=== PATIENT | male | born 1995 | race Two or more races ===

== ENCOUNTER 2023-01-31 17:17 | Emergency (ER) | payer BC ==
[~2023-01-31] VITALS: Ht 175.3 cm; Wt 73.5 kg
== END 2023-01-31 19:36 | disposition home or self-care (01) ==
LOC: ER 17:17
DX: S82.891A Other fracture of right lower leg, initial encounter for closed fracture (principal); X58.XXXA Exposure to other specified factors, initial encounter; Y93.89 Activity, other specified; Y92.89 Other specified places as the place of occurrence of the external cause; Y99.8 Other external cause status

== ENCOUNTER 2023-02-18 10:03 | Outpatient (CLI) | payer BC | END 2023-02-18 10:08 | disposition home or self-care (01) | LOC: RAD 10:03 | PROVIDERS: ATTEND Orthopaedic Surgery | DX: S93.401A Sprain of unspecified ligament of right ankle, initial encounter (principal) ==

== ENCOUNTER 2024-02-22 14:24 | Emergency (ER) | payer BC ==
[~2024-02-22] VITALS: Ht 167.6 cm; Wt 68.0 kg
== END 2024-02-22 16:43 | disposition home or self-care (01) ==
LOC: ER 14:24
DX: K64.9 Unspecified hemorrhoids (principal)